=== PATIENT | male | born 1985 | race Caucasian/White ===

== ENCOUNTER 2017-07-09 17:04 | Emergency (ER) | payer OTHER ==
[~2017-07-09] VITALS: Ht 177.8 cm; Wt 79.4 kg
[2017-07-09] MEDS ORDERED: KETOROLAC TROMETHAMINE 60 MG/2 ML VIAL IM ONE ×3 (17:15→18:00)
[2017-07-09] MEDS ORDERED: DEXAMETHASONE 10MG/ML PF INJ IV ONE ×2 (17:15→18:00)
[2017-07-09] MEDS ORDERED: CYCLOBENZAPRINE HCL 10 MG TAB PO ONE ×3 (17:15→18:00)
[2017-07-09] MEDS ORDERED: DEXAMETHASONE SOD PHOS 10 MG/1 ML VIAL ONE (17:30)
--- NOTE | 2017-07-09 18:21 | Diagnostic Imaging Report ---
EXAM: SP LUMBAR, COMPLETE MIN 4VW DATE: 07/09/2017 5:09 PM INDICATION: \S\PAIN \[id number] \S\[id number] COMPARISON: Vertebral heights and disc spaces are maintained. Alignment is satisfactory. No pars defect identified. FINDINGS: No acute findings. IMPRESSION: Signed by: Dr. Víctor Mix MD on 07/09/2017 6:17 PM
== END 2017-07-09 18:44 | disposition home or self-care (01) ==
LOC: ER 17:14
DX: S39.012A Strain of muscle, fascia and tendon of lower back, initial encounter (principal); X58.XXXA Exposure to other specified factors, initial encounter; Y93.89 Activity, other specified
CPT/HCPCS: 72110; 99284; J1100; J1885